=== PATIENT | female | born 1995 | race Caucasian/White ===

== ENCOUNTER 2020-02-24 11:17 | Emergency (ER) | payer OTHER ==
[~2020-02-24] VITALS: Ht 165.1 cm; Wt 55.3 kg
[2020-02-24 11:40] VITALS: BP 130/76
[2020-02-24] MEDS ORDERED: SURGICEL HEMOSTAT 4X8 EACH. TP ONE (12:30)
--- NOTE | 2020-02-24 12:40 | RAD ---
FINGER(S) LEFT 02/24/2020 12:02 PM INDICATION: Left index finger cut with questionable slicer COMPARISON: None available. TECHNIQUE: 3 views of the left hand second digit were obtained. FINDINGS/ IMPRESSION: 1. Soft tissue defect identified involving the distal phalanx of the second digit of the left hand. No underlying osseous abnormality is identified. No fracture or dislocation. Joint spaces are maintained. No radiopaque foreign density or soft tissue gas. Electronically signed by: Candelaria Rider MD (02/24/2020 12:37 PM) [id number]
--- NOTE | 2020-02-24 13:42 | PHYS DOC ---
Past Medical History Past Medical History: No Pertinent History Past Surgical History: No Surgical History Smoking Status: Current Every Day Smoker Additional Information: 1/2 PPD Alcohol Use: Rarely General Adult EDM: Chief Complaint: LACERATION/AVULSION HPI: HPI: Patient is a 24 year old female who presents to the emergency department with complaints of an avulsion to the volar surface of her left index finger. Patient states she was using a slicer at work to cut onions which accidentally cut her left index finger. Patient reports she is left-handed. She denies any decreased sensation or movement of the affected digit since the injury. Patient reports her last tetanus shot was 3 years ago. She currently rates the pain 8 out of 10 on the pain scale describes it as a burning sensation. She denies any alleviating factors, the pain increases if the area is touched. Review of Systems: Review of Systems: Complete review of systems is negative unless otherwise documented in the HPI Heart Score: Risk Factors: Risk Factors: DM, Current or recent (<one month) smoker, HTN, HLP, family history of CAD, obesity. Risk Scores: Score 0 - 3: 2.5% MACE over next 6 weeks - Discharge Home Score 4 - 6: 20.3% MACE over next 6 weeks - Admit for Clinical Observation Score 7 - 10: 72.7% MACE over next 6 weeks - Early Invasive Strategies Current Medications: Current Medications Medications (Trade) Dose Ordered Sig/Eric Start Time Stop Time Status Last Admin Dose Admin Cellulose (Surgicel Hemostat 4x8) 1 each 1X ONCE 02/24/20 12:30 02/24/20 12:31 DC 02/24/20 12:30 1 EACH Allergies: Allergies: Allergies Coded Allergies Type Severity Reaction Last Updated Verified No Known Drug Allergies 02/24/20 No Physical Exam: PE: Constitutional: Well developed, well nourished, no acute distress, non-toxic appearance. [] HENT: Normocephalic, atraumatic, bilateral external ears normal, nose normal. [] Eyes: PERRLA, EOMI, conjunctiva normal, no discharge. [] Neck: Normal range of motion, no stridor. [] Cardiovascular:Heart rate regular rhythm Lungs & Thorax: Respirations even and unlabored, no retractions, no respiratory distress Skin: Warm, dry, no erythema, no rash; left index finger 1 cm x 1/2 cm avulsion through the medial part of the nailbed distal to the DIP, bleeding controlled by pressure dressing, no visible tendon or joint.. [] Extremities: Left index finger: No cyanosis, PMS intact Neurologic: Alert and oriented X 3, no focal deficits noted. [] Psychologic: Affect normal, judgement normal, mood normal. [] Current Patient Data: Vital Signs: Vital Signs Date Time Temp Pulse Resp B/P (MAP) Pulse Ox O2 Delivery O2 Flow Rate FiO2 02/24/20 11:40 97.8 67 16 130/76 (94) 99 Room Air 97.8 EKG: EKG: [] Radiology/Procedures: Radiology/Procedures: Avulsion Repair by me: Anesthesia: None Location: Distal left index finger Tendon/Joint/Nerves: No injury Foreign body: None detected after copious irrigation and exploration with chlorhexidine scrub and normal saline Technique: Surgicel topical and pressure dressing Complexity: No subcutaneous sutures/mucosal repair/edge excision Patient's bleeding was easily controlled in the department and there is no indication of anemia. No evidence of compartment syndrome, neurologic injury, vascular injury, open joint, tendon laceration, or foreign body. Patient is appropriate for outpatient follow up. [] Course & Med Decision Making: Course & Med Decision Making Pertinent Labs and Imaging studies reviewed. (See chart for details) [] Dragon Disclaimer: Jaylin Disclaimer: This electronic medical record was generated, in whole or in part, using a voice recognition dictation system. Departure Departure Impression: Primary Impression: Fingernail avulsion, partial Qualified Codes: S61.309A - Unspecified open wound of unspecified finger with damage to nail, initial encounter Additional Impression: Fingertip avulsion Qualified Codes: S61.209A - Unspecified open wound of unspecified finger without damage to nail, initial encounter Disposition: HOME, SELF-CARE Condition: STABLE Referrals: NO PCP (PCP) Patient Instructions: Fingertip Injuries and Amputations, Nail Avulsion Injury Additional Instructions: You may take Tylenol or ibuprofen as needed for pain. Keep the dressing that was applied today in place for 24 hours then you can change the dressing twice daily and as needed. The Surgicel that was applied to stop the bleeding will come off as the wound heals. Follow-up with your primary care doctor for wound recheck in the next 1 to 2 days, return to the ER symptoms worsen or fever dev elops. Justicifation of Admission Dx: Justifications for Admission: Justification of Admission Dx: N/A GRAHAM VIEIRA [employer]ATOR Feb 24, 2020 13:42
== END 2020-02-24 13:48 | disposition home or self-care (01) ==
LOC: ER 11:17
DX: S61.311A Laceration without foreign body of left index finger with damage to nail, initial encounter (principal); F17.200 Nicotine dependence, unspecified, uncomplicated; W26.8XXA Contact with other sharp object(s), not elsewhere classified, initial encounter; Y93.89 Activity, other specified; Y92.89 Other specified places as the place of occurrence of the external cause; Y99.8 Other external cause status
CPT/HCPCS: 11730; 73140; 99284